=== PATIENT | male | born 1970 | race African-American/Black ===

== ENCOUNTER 2023-10-12 00:40 | Emergency (ER) | payer OTHER ==
[~2023-10-12] VITALS: Ht 167.6 cm; Wt 81.9 kg
[2023-10-12 00:46] VITALS: O2SAT 99
[2023-10-12 01:00] VITALS: TEMP 98.4
[2023-10-12 01:39] LABS: BASOPHILS % 0.3 % (0.0-2.0); EOSINOPHILS % 0.7 % (0.0-5.0); HEMATOCRIT. 39.7 % (42.0-52.0); HEMOGLOBIN. 13.7 g/dL (14.0-18.0); LYMPHOCYTES % 26.7 % (20.0-50.0); MEAN CORPUSCULAR HEMOGLOBIN 28.5 pg (28.0-32.0); MEAN CORPUSCULAR HGB CONC 34.4 g/dL (31.0-37.0); MEAN CORPUSCULAR VOLUME 82.9 fL (80.0-94.0); MEAN PLATELET VOLUME 7.8 fl (7.4-10.4); MONOCYTES % 7.4 % (2.0-8.0); NEUTROPHILS % 64.9 % (40.0-76.0); PLATELET 299 x1000/uL (130-400); RED CELL DISTRIBUTION WIDTH 14.2 % (11.6-14.6); WHITE BLOOD COUNT 13.2 x1000/uL (4.5-11.0)
[2023-10-12 01:40] LABS: CLARITY URINE CLEAR (CLEAR); COLOR URINE YELLOW (YELLOW); GLUCOSE URINE NEGATIVE (NEGATIVE); KETONES URINE NEGATIVE (NEGATIVE); LEUKOCYTE ESTERASE URINE TRACE (NEGATIVE); NITRITE URINE NEGATIVE (NEGATIVE); OCCULT BLOOD URINE TRACE (NEGATIVE); PROTEIN URINE NEGATIVE (NEGATIVE); SPECIFIC GRAVITY URINE 1.016 (1.005-1.030)
[2023-10-12 01:45] LABS: CHLORIDE 107 mEq/L (98-107); POTASSIUM 3.6 mEq/L (3.5-5.1); SODIUM 137 mEq/L (136-145)
[2023-10-12 01:46] LABS: CARBON DIOXIDE 24 mEq/L (21-32)
[2023-10-12 01:47] LABS: CALCIUM 8.8 mg/dL (8.7-10.4)
[2023-10-12 01:49] LABS: *AMPHETAMINES SCREEN URINE NEGATIVE (NEGATIVE); *BARBITURATES SCREEN URINE NEGATIVE (NEGATIVE); *BENZODIAZEPINES SCREEN URINE NEGATIVE (NEGATIVE); *COCAINE SCREEN URINE NEGATIVE (NEGATIVE); CANNABINOID URINE SCREEN PRESUMPTIVE POSITIVE (NEGATIVE); ECSTASY MDMA SCREEN URINE NEGATIVE (NEGATIVE); METHADONE URINE SCREEN NEGATIVE (NEGATIVE); OPIATES URINE SCREEN NEGATIVE (NEGATIVE); PHENCYCLIDINE URINE SCREEN NEGATIVE (NEGATIVE)
[2023-10-12 01:51] LABS: CREATININE 1.3 mg/dL (0.6-1.3)
[2023-10-12 01:52] LABS: GLUCOSE 140 mg/dL (70-105); UREA NITROGEN BLOOD 16 mg/dL (9-23)
[2023-10-12] MEDS: LABETALOL 5MG/ML 4ML INJ IV ONE (01:52)
[2023-10-12 01:53] LABS: ETHANOL BLOOD < 10 mg/dL (<10); TROPONIN I HIGH SENSITIVITY < 4 ng/L (3.0-53)
[2023-10-12] MEDS ORDERED: ASPIRIN 325MG EC TABLET PO ONE (02:00)
[2023-10-12] MEDS ORDERED: NICARDIPINE 50 MG in SODIUM CHLORIDE 0.9% 230 ML IV PRN (02:30)
[2023-10-12] MEDS: ASPIRIN 325MG EC TABLET PO NR (02:33)
[2023-10-12] MEDS: NICARDIPINE 40 MG/200 ML PREMIX 200 ML IV PRN (02:33)
[2023-10-12] MEDS ORDERED: IOHEXOL-350 100 ML BOTTLE ONE (02:56)
[2023-10-12 03:10] VITALS: BP 212/110; PULSE 76; RESP 13
[2023-10-12 03:20] LABS: INR 0.9; PROTHROMBIN TIME 10.1 sec (9.6-11.0)
[2023-10-12 07:36] LABS: BACTERIA URINE NONE SEEN; RBC URINE 0-2 /hpf (0-2); SQUAMOUS EPITHELIAL CELL URINE NONE SEEN /lpf (RARE/1+)
[2023-10-12] MEDS ORDERED: ATORVASTATIN CALCIUM 40MG TABLET PO SCH (21:00)
== END 2023-10-12 03:30 | disposition short-term general hospital (02) ==
LOC: ER 00:40
DX: I65.09 Occlusion and stenosis of unspecified vertebral artery (principal); I16.0 Hypertensive urgency
CPT/HCPCS: 80305; 80048; 81003; 80320; 83690; 85025; 85610; 84484; 36415; 71045; 70496; 70498; 70450; 93005; 99291; Q9967; Z7610 ×2; J3490; G0480